=== PATIENT | female | born 2000 | race Caucasian/White ===

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

== ENCOUNTER → 2021-06-24 | Outpatient (CLI) | payer OTHER ==
[2021-06-24 18:50] LABS: Basophils # (A) 0.04 X 10*3/uL (0.00-0.10); Basophils % (A) 0.5 %; Eosinophils # (A) 0.08 X 10*3/uL (0.04-0.35); Eosinophils % (A) 0.9 %; HCT 44.7 % (37.2-46.3); HGB 14.6 g/dL (12.0-15.0); Immature Grans, Automated 0.2 %; Lymphocytes # (A) 2.15 X 10*3/uL (0.90-5.00); Lymphocytes % (A) 24.6 %; MCH 28.5 pg (27.0-32.0); MCHC 32.7 g/dL (32.0-37.0); MCV 87.3 fL (80.0-97.0); Mean Platelet Volume 10.9 fL (9.5-12.2); Monocytes # (A) 0.64 X 10*3/uL (0.20-1.00); Monocytes % (A) 7.3 %; NRBC Per 100 WBC 0 /100 WBCS (0.0-0.0); Neutrophils # (A) 5.81 X 10*3/uL (1.80-7.70); Neutrophils % (A) 66.5 %; Platelet Count 282 X 10*3/uL (140-440); RBC 5.12 X 10*6/uL (4.10-5.20); WBC 8.74 X 10*3/uL (4.50-10.00)
== END | disposition home or self-care (01) ==
LOC: LABWHC1 13:19
PROVIDERS: ATTEND Ophthalmology
DX: L00-L99 Diseases of the skin and subcutaneous tissue (principal)
CPT/HCPCS: 36415; 82947; 83036; 85025

== ENCOUNTER → 2021-07-06 | Outpatient (CLI) | payer OTHER ==
--- NOTE | 2021-07-07 06:29 | MR ---
EXAMINATION TYPE: MR brain wo/w con DATE OF EXAM: 07/06/2021 COMPARISON: NONE HISTORY: Pseudopapilledema both eyes. TECHNIQUE: Multiplanar, multisequence images of the brain and brainstem is performed without and with IV contras t, utilizing 7 mL intravenous Gadavist . FINDINGS: Diffusion weighted images demonstrate no evidence of a recent infarct or other diffusion ab normality. There is no extra-axial fluid collection or significant white matter signal abnormality. The ventricular system and cisternal spaces are normal in size and appearance. The brain volume is age appropriate. Midline structures demonstrate normal morphology. Pituitary gland normal in size for patient's age. T here are slightly low-lying cerebellar tonsils bilaterally projecting into foramen magnum, this is sl ightly more prominent on the left without greater than 5 mm inferior extension. Post contrast images demonstrate no abnormal enhancement. The dural venous sinuses appear patent. Some prominence of CSF surrounding optic nerves. Some flattening of the posterior sclera is felt present. Visualized paranas al sinuses are clear. IMPRESSION: Some MRI findings increased suspicion for idiopathic intracranial hypertension, prominenc e of subarachnoid space surrounding optic nerves with slightly low-lying cerebellar tonsils and olivia ening of the bilateral posterior sclera in the globes.
== END | disposition home or self-care (01) ==
LOC: RADMRIMAIN 15:28
PROVIDERS: ATTEND Ophthalmology
DX: H47.333 Pseudopapilledema of optic disc, bilateral (principal)
CPT/HCPCS: 70553; A9585